=== PATIENT | male | born 2000 | race Caucasian/White ===

== ENCOUNTER 2019-08-03 18:47 | Emergency (ER) | payer BC, OTHER ==
[2019-08-03] MEDS ORDERED: Acetaminophen/oxyCODONE 325-5 MG Tab PO ONE (19:30)
[2019-08-03] MEDS ORDERED: Ibuprofen 400 MG Tab PO ONE (19:30)
--- NOTE | 2019-08-03 19:44 | EDM.PDOC ---
ED HPI GENERAL MEDICAL PROBLEM - General Chief Complaint: Upper Extremity Injury/Pain Stated Complaint: right arm injury Time Seen by Provider: 08/03/19 19:23 Source of Information: Reports: Patient History Limitations: Reports: No Limitations - History of Present Illness INITIAL COMMENTS - FREE TEXT/NARRATIVE: 18-year-old male with no medical history presenting with an injury of the right hand. Around 515 this afternoon, the patient was working at a job site when a 3 inch metal chain fell from approximately 40 feet up on the ground, landing on his right hand and right forearm. It also struck him in the head but he was wearing a hard hat. He did not lose consciousness. He arrives to the emergency department complaining of significant pain and swelling to the dorsum of the right hand and limited movement due to pain. He also complains of an abrasion to the posterior aspect of the right forearm. Denies any pain of the head, neck, torso. No treatment prior to arrival. Right Arm Pain Score (Numeric/FACES): 8 - Related Data Allergies Allergy/AdvReac Type Severity Reaction Status Date / Time sulfamethoxazole Allergy Other Verified 08/03/19 19:19 [From Bactrim] trimethoprim [From Bactrim] Allergy Other Verified 08/03/19 19:19 Home Meds: Home Meds Acetaminophen [Acetaminophen Extra Strength] 500 - 1,000 mg PO Q6H PRN #30 tablet 08/03/19 [Rx] Ibuprofen 400 mg PO Q6H PRN #30 tablet 08/03/19 [Rx] Past Medical History - Past Health History Medical/Surgical History: Denies Medical/Surgical History Social & Family History - Family History Family Medical History: Noncontributory - Tobacco Use Smoking Status *Q: Current Every Day Smoker Years of Tobacco use: 2 Packs/Tins Daily: 0.5 - Caffeine Use Caffeine Use: Reports: Coffee, Soda - Recreational Drug Use Recreational Drug Use: No Review of Systems - Review of Systems Review Of Systems: Comprehensive ROS is negative, except as noted in HPI. Constitutional: Reports: No Symptoms Eyes: Reports: No Symptoms Ears: Reports: No Symptoms Nose: Reports: No Symptoms Mouth/Throat: Reports: No Symptoms Respiratory: Reports: No Symptoms Cardiovascular: Reports: No Symptoms GI/Abdominal: Reports: No Symptoms Genitourinary: Reports: No Symptoms Musculoskeletal: Reports: Hand Pain (Right hand pain) Skin: Reports: Wound (Abrasion to right forearm) Neurological: Reports: Numbness (Complains of tingling in the dorsum of the right hand and subjective numbness to the ulnar aspect of the right second finger), Tingling Psychiatric: Reports: No Symptoms ED EXAM, GENERAL - Physical Exam Exam: See Below Free Text/Narrative:: Vital signs reviewed. Nursing notes reviewed. Constitutional: Awake, alert, non-distressed Head: Normocephalic, atraumatic Eyes: EOMI, PERRL at 3 mm bilaterally, conjunctiva normal, no discharge, no scleral icterus Ears, Nose, Throat: External ears and ears normal, moist oral mucosa Cardiovascular: 2+ radial pulses bilaterally. Capillary refill less than 2 seconds Pulmonary: normal work of breathing, no accessory muscle use Abdomen/GI: Soft, nontender, nondistended, no guarding or rigidity, no masses Musculoskeletal: Swelling noted to the dorsum of the right hand, worst over the right second metacarpal. Range of motion of the right hand is limited due to pain. Normal range of motion of the right wrist. Iso-thermic temperatures between the 2 hands. Integumentary: Appropriate color for ethnicity, warm, dry, no pallor or jaundice , no rash. Abrasion to the posterior aspect of the right forearm. No pallor noted to either hand. Neurologic: Alert, answering questions appropriately, normal speech, no facial droop, moving all extremities well complains of subjective numbness to the ulnar side of the right second finger, but sensation to the other fingers of the right hand is normal. Psychiatric: Appropriate mood and affect, normal thought process ED TRAUMA EXTREMITY PROCEDURES - Splinting Right Splint Site: Right hand Pre-Procedure NV Status: Normal Post-Procedure NV Status: Normal Splint Material: Fiberglass, Other (Ortho-Glass and Cheng bandages) Splint Design: Volar Applied & Form Fitted By: Nurse Provider Post-Splint Application NV Check: NV Status Normal, Good Position Complications: No Progress/Comments: Circulation, motor function, and sensation are intact before and after splinting Course - Vital Signs Text/Narrative:: On arrival patient is hemodynamically stable, well-appearing. 2+ radial pulse in the right upper extremity. Subjective numbness on the ulnar side of the right second finger only. No poikilothermia, pallor, or paralysis. Plan for pain medications and x-rays of the right hand. X-rays returned showing a fracture through the right second metacarpal bone, with anatomic alignment. Pain was well-controlled after analgesic medications. Placed in a Ortho-Glass volar slab splint. This was performed as detailed in the procedure note. Stable to discharge home with outpatient orthopedic surgery clinic follow-up in 1 to 2 weeks. Prescribed [id number] acetaminophen and ibuprofen. Splint care precautions and strict ED return precautions were provided. All questions were answered prior to discharge. Last Recorded V/S: Last Vital Signs Temp 36.4 C 08/03/19 19:15 Pulse 73 08/03/19 19:15 Resp 16 08/03/19 19:15 BP 146/87 H 08/03/19 19:15 Pulse Ox 97 08/03/19 19:15 - Orders/Labs/Meds Orders: Active Orders 24 hr Category Date Time Status Splinting [RC] ASDIRECTED Care 08/03/19 20:07 Active Meds: Medications Discontinued Medications Generic Name Dose Route Start Last Admin Trade Name Chao PRN Reason Stop Dose Admin Ibuprofen 400 mg 08/03/19 19:30 08/03/19 20:01 Motrin PO 08/03/19 19:31 400 mg ONETIME ONE Administration Oxycodone/Acetaminophen 2 tab 08/03/19 19:30 08/03/19 20:02 Percocet 325-5 Mg PO 08/03/19 19:31 2 tab ONETIME ONE Administration Departure - Departure Time of Disposition: 21:22 Disposition: Home, Self-Care 01 Condition: Good Clinical Impression: Fracture of metacarpal bone Qualifiers: Encounter type: initial encounter Metacarpal bone: second Fracture type: closed Metacarpal location: shaft Fracture alignment: nondisplaced Laterality: right Qualified Code(s): S62.350A - Nondisplaced fracture of shaft of second metacarpal bone, right hand, initial encounter for closed fracture - Discharge Information *PRESCRIPTION DRUG MONITORING PROGRAM REVIEWED*: Not Applicable *COPY OF PRESCRIPTION DRUG MONITORING REPORT IN PATIENT MINDY: Not Applicable Instructions: Cast or Splint Care, Adult, [id number], Metacarpal Fracture, [id number] Referrals: [facility] - Orthopaedics [Provider Group] - 1 Week (For follow-up fracture care) Forms: ED Department Discharge Additional Instructions: The following information is given to patients seen in the emergency department who are being discharged to home. This information is to outline your options for follow-up care. We provide all patients seen in our emergency department with a follow-up referral. The need for follow-up, as well as the timing and circumstances, are variable depending upon the specifics of your emergency department visit. If you don't have a primary care physician on staff, we will provide you with a referral. We always advise you to contact your personal physician following an emergency department visit to inform them of the circumstance of the visit and for follow-up with them and/or the need for any referrals to a consulting specialist. The emergency department will also refer you to a specialist when appropriate. This referral assures that you have the opportunity for follow-up care with a specialist. All of these measure are taken in an effort to provide you with optimal care, which includes your follow-up. Under all circumstances we always encourage you to contact your private physician who remains a resource for coordinating your care. When calling for follow-up care, please make the office aware that this follow-up is from your recent emergency room visit. If for any reason you are refused follow-up, please contact the [facility] Emergency Department at and asked to speak to the emergency department charge nurse. Sepsis Event Note - Evaluation Sepsis Screening Result: No Definite Risk - Focused Exam Vital Signs: Vital Signs Temp Pulse Resp BP Pulse Ox 08/03/19 19:15 36.4 C 73 16 146/87 H 97 Date Exam was Performed: 08/03/19 Time Exam was Performed: 21:19 - My Orders Last 24 Hours: My Active Orders 08/03/19 20:07 Splinting [RC] ASDIRECTED - Assessment/Plan Last 24 Hours: My Active Orders 08/03/19 20:07 Splinting [RC] ASDIRECTED
--- NOTE | 2019-08-03 19:57 | CR ---
Right hand: 3 views of the right hand were obtained. Comparison: No previous hand exam is available. Fracture is seen within the mid to distal diaphysis of the 2nd metacarpal. Alignment remains close to anatomic. Soft tissue swelling is identified. No additional fracture or other bony abnormality is appreciated. Impression: 1. 2nd metacarpal shaft fracture with soft tissue swelling. Diagnostic code #3 This report was dictated in MDT
== END 2019-08-03 21:34 | disposition home or self-care (01) ==
LOC: MW.ED 18:47
DX: S62.350A Nondisplaced fracture of shaft of second metacarpal bone, right hand, initial encounter for closed fracture (principal); Z88.2 Allergy status to sulfonamides; F17.210 Nicotine dependence, cigarettes, uncomplicated; W20.8XXA Other cause of strike by thrown, projected or falling object, initial encounter; Y99.0 Civilian activity done for income or pay
CPT/HCPCS: 29125; 73130; 99283; A9270; 99282

== ENCOUNTER 2022-07-04 08:28 | Emergency (ER) | payer BC ==
[2022-07-04 09:46] LABS: CORONAVIRUS COVID-19 NAA NEGATIVE (NEGATIVE); INFLUENZA A NAA NEGATIVE (NEGATIVE); INFLUENZA B NAA NEGATIVE (NEGATIVE)
[2022-07-04] MEDS ORDERED: Dexamethasone 10 MG/ML SDV IM STA (09:57)
[2022-07-04] MEDS ORDERED: Penicillin G Benzathine 1,200,000 Units/2 ML Syringe IM ONE (09:57)
[2022-07-04] MEDS ORDERED: Dexamethasone 10 MG/ML SDV PO ONE (10:14)
== END 2022-07-04 10:45 | disposition home or self-care (01) ==
LOC: MW.ED 08:28
DX: J02.0 Streptococcal pharyngitis (principal); Z88.1 Allergy status to other antibiotic agents; Z20.822 Contact with and (suspected) exposure to COVID-19
CPT/HCPCS: 0240U; 87651; 96372; 99283; J0561; J8540